=== PATIENT | female | born 1935 | race Caucasian/White ===

== ENCOUNTER → 2020-09-20 13:28 | Outpatient (BNVA) | payer MEDICARE, SELFPAY | PROVIDERS: PCP Internal Medicine; Referring Provider Internal Medicine; Visit Provider Hospitalist | DX: J44.9 Chronic obstructive pulmonary disease, unspecified (principal); Z79.899 Other long term (current) drug therapy | CPT/HCPCS: 99212 ==

== ENCOUNTER → 2021-03-17 12:47 | Outpatient (BNVA) | payer MEDICARE, SELFPAY | PROVIDERS: PCP Internal Medicine; Visit Provider Hospitalist | DX: R06.00 Dyspnea, unspecified (principal); J44.9 Chronic obstructive pulmonary disease, unspecified | CPT/HCPCS: 99212 ==

== ENCOUNTER → 2021-12-13 12:48 | Outpatient (BNVA) | payer MEDICARE, SELFPAY | PROVIDERS: PCP Internal Medicine; Visit Provider Hospitalist | DX: J44.9 Chronic obstructive pulmonary disease, unspecified (principal); R06.00 Dyspnea, unspecified; R53.83 Other fatigue; Z79.899 Other long term (current) drug therapy | CPT/HCPCS: 99212 ==

== ENCOUNTER 2022-08-15 12:50 | Outpatient (REF) | payer MEDICARE, SELFPAY ==
--- NOTE | ~2022-08-15 | XR_ITS ---
EXAMINATION: XR CHEST CLINICAL INFORMATION: Dyspnea COMPARISON: None TECHNIQUE: 2 views of the chest were obtained. FINDINGS: Heart is normal in size. Thoracic aorta is tortuous. No acute vascular congestion. There is some hyperexpansion of the lung parenchyma. Scarring and fibrotic changes seen in the right lung base. Apical fibrotic changes seen in the bilateral lung parenchyma. No focal opacities. There is kyphosis of the thoracic spine. XR/XR chest 2V IMPRESSION: No acute pulmonary process Hyperexpansion of the lung parenchyma with fibrotic changes as described above
== END 2022-08-15 12:51 | disposition home or self-care (01) ==
LOC: HO.XRAY 12:50
PROVIDERS: PCP Internal Medicine; Visit Provider Hospitalist
DX: J44.9 Chronic obstructive pulmonary disease, unspecified (principal); R06.00 Dyspnea, unspecified; R53.83 Other fatigue
CPT/HCPCS: 71046; 94618; 99212

== ENCOUNTER → 2023-02-20 13:13 | Outpatient (BNVA) | payer MEDICARE, SELFPAY | PROVIDERS: PCP Internal Medicine; Visit Provider Hospitalist | DX: J44.9 Chronic obstructive pulmonary disease, unspecified (principal); R53.83 Other fatigue; R06.00 Dyspnea, unspecified | CPT/HCPCS: 99212 ==

== ENCOUNTER 2023-08-22 11:11 | Outpatient (AMB) | payer MEDICARE, SELFPAY ==
[2023-08-22 11:34] VITALS: BP 124/60; PULSE 60; O2SAT 96; BMI 26.0
--- NOTE | 2023-08-22 11:34 | A.OFFVIS_ITS ---
Intake Vital Signs 08/22/23 11:34 Height 5 ft Weight 133 lb BMI 26.0 BP 124/60 Blood Pressure Location Lt brachial Position Sitting Pulse 60 Pulse Source Pulse Oximeter Pulse Oximetry (%) 96 Oxygen Delivery Method Room Air Intake Visit Reasons: copd [employer] Treater Required: No Allergies No Known Allergies Allergy (Verified 08/22/23 11:36) HPI HPI Comments History of Present Illness Details The patient is an 88-year-old woman with a known history of atrial fibrillation, hiatal hernia status post repair in addition to melanoma who has been developing progressive dyspnea on exertion. She states that at rest when while she is sitting she has not symptomatic. However, with minimal activity she becomes very symptomatic and has a hard time breathing. She did see her lacquer pin press operator and felt that it was not a cardiac process. Therefore she was referred to Pulmonary. On further questioning she does carry a diagnosis of asthma. She has been on good medications including increasing Advair for some time. She also has a rescue inhaler that she uses at times with some partial resolution of the symptoms. More recently also she found out that she is having issues with her neck. She did have a laminectomy back in 2009 and now having increasing neck pain. We did talk about the possibility of a phrenic nerve involvement that could result in increasing shortness of breath from and neuromuscular etiology. During the office visit we did take her for walking oximetry in the patient became very short of breath during the 6 minutes she was able to completed. Her pulse oximetry and heart rate were stable throughout the procedure but her shortness of breath Zachery score was elevated. She is scheduled for pulmonary function studies at [place] sometime in early April. Will follow up with does studies. 02/20/2023 the patient is here for pulmonary follow-up visit. The patient overall is feeling better with the nebulized therapy. She is using it twice a day. She still having a cough. Moderate production. She did get the Acapella valve we did go through the instructions in the office how to use it appropriately. Overall she is still doing relatively well from a respiratory status. She is still struggling with her breathing and her depression. She was recently started on Zoloft although she has not taking the medication as of yet. I did recommend she started. She can also try some melatonin for sleep. 08/22/2023 the patient is here for a pulmonary follow-up visit. The patient overall has been doing better. She is tolerating the Xopenex. She is also using the budesonide. Sometimes she only uses it once a day which is okay. But she knows to increase it to twice a day if her symptoms worsen. She also get the Acapella valve and she does use it at times. Her breathing overall has been stable. She is still having some difficulties with her fatigue during the daytime. Although she feels like she is sleeping well at nighttime. Sometimes she wakes up a little bit too early. She is not taking melatonin this time which is okay. The patient overall has been doing well therefore will continue with current therapy and will follow-up sometime in the summer. [facility] Medical History (Updated 08/22/23 @ 11:43 by Oniel Lehman MD) Fatigue Dyspnea Asthma-COPD overlap syndrome Family History (Updated 09/20/20 @ 22:33 by Oniel Lehman MD) Other Asthma Social History (Updated 02/20/23 @ 13:24 by Shaila Gaspar [facility]) Patient Tobacco Use Status: Never used Tobacco Review of Systems Const Reports daytime sleepiness, Denies difficulty sleeping, Reports fatigue and Denies night sweats ENT Denies change in voice, Denies lip swelling, Denies mouth pain, Reports nasal congestion, Reports nasal discharge and Denies tongue swelling Card Denies chest pain and Reports dyspnea on exertion Resp Denies change in phlegm color, Reports chest congestion, Reports cough and Reports dyspnea on exertion GI Denies abdominal pain Musc Denies no additional complaints and Reports abnormal gait Neuro Denies Neuro-related abnormal movements, Reports abnormal gait and Reports memory loss Psych Denies no additional complaints, Reports depression and Reports memory loss Endo Reports fatigue John/Lymph Denies easy bleeding and Denies lymphadenopathy Aller/Immun Denies lip swelling and Denies tongue swelling Physical Exam Vital Signs: Last Vital Signs Pulse 60 08/22/23 11:34 BP 124/60 08/22/23 11:34 Pulse Ox 96 08/22/23 11:34 Oxygen Delivery Method Room Air 08/22/23 11:34 BMI result Body Mass Index 26.0 Const General: alert Neck Neck: Yes normal visual inspection, Yes full ROM and Yes no lymphadenopathy Chest Chest palpation & inspection: normal inspection of the chest Resp Effort & Inspection: normal respiratory effort Auscultation: no rales, no rhonchi, no wheezes and diminished lung sounds (coarse) Cardio Rate: regular rate Rhythm: regular rhythm Heart sounds: S1 normal heart sound present and S2 normal heart sound present GI Palpation (GI): Soft to palpation and nontender Auscultation: normal bowel sounds Skin General skin exam: rashes and/or lesions noted Assessment & Plan Assessment & Plan (1) Dyspnea: Code(s): R06.00 - Dyspnea, unspecified Qualifiers: Dyspnea type: dyspnea on exertion Qualified Code(s): R06.00 - Dyspnea, unspecified (2) Asthma-COPD overlap syndrome: Code(s): J44.9 - Chronic obstructive pulmonary disease, unspecified (3) Fatigue: Code(s): R53.83 - Other fatigue Qualifiers: Fatigue type: chronic, unspecified Qualified Code(s): R53.82 - Chronic fatigue, unspecified Plan continue budesonide xopenex BID CPT with acapella valve ALFONSO as neded consider Melatonin for sleep F/U 8-10 months Coding Level of Care Code Est Pt Level 4 (36981) Diagnoses Dyspnea on exertion R06.00 Dyspnea type: dyspnea on exertion Asthma-COPD overlap syndrome J44.9 Chronic fatigue R53.82 Fatigue type: chronic, unspecified Time Spent (min) 16
== END 2023-08-22 11:52 | disposition home or self-care (01) ==
PROVIDERS: PCP Internal Medicine; Visit Provider Hospitalist
DX: R06.00 Dyspnea, unspecified (principal); J44.9 Chronic obstructive pulmonary disease, unspecified; R53.82 Chronic fatigue, unspecified
CPT/HCPCS: 99214

== ENCOUNTER → 2023-08-22 11:11 | Outpatient (BNVA) | payer MEDICARE, SELFPAY | PROVIDERS: Visit Provider Hospitalist | DX: J44.9 Chronic obstructive pulmonary disease, unspecified (principal); R06.00 Dyspnea, unspecified; R53.83 Other fatigue | CPT/HCPCS: 99212 ==

== ENCOUNTER 2024-05-15 13:10 | Outpatient (AMB) | payer MEDICARE, SELFPAY ==
--- NOTE | 2024-05-15 13:18 | A.OFFVIS_ITS ---
Vital Signs 05/15/24 13:26 Height 5 ft Weight 137 lb 12.623 oz BMI 26.9 BP 112/58 L Blood Pressure Location Rt brachial Position Sitting Pulse 58 Intake Visit Reasons: COPD Allergies No Known Allergies Allergy (Verified 05/15/24 13:27) HPI Comments Details: The patient is an 88-year-old woman with a known history of atrial fibrillation, hiatal hernia status post repair in addition to melanoma who has been developing progressive dyspnea on exertion. She states that at rest when while she is sitting she has not symptomatic. However, with minimal activity she becomes very symptomatic and has a hard time breathing. She did see her rails developer and felt that it was not a cardiac process. Therefore she was referred to Pulmonary. On further questioning she does carry a diagnosis of asthma. She has been on good medications including increasing Advair for some time. She also has a rescue inhaler that she uses at times with some partial resolution of the symptoms. More recently also she found out that she is having issues with her neck. She did have a laminectomy back in 2009 and now having increasing neck pain. We did talk about the possibility of a phrenic nerve involvement that could result in increasing shortness of breath from and neuromuscular etiology. During the office visit we did take her for walking oximetry in the patient became very short of breath during the 6 minutes she was able to completed. Her pulse oximetry and heart rate were stable throughout the procedure but her shortness of breath Zachery score was elevated. She is scheduled for pulmonary function studies at [place] sometime in early April. Will follow up with does studies. 02/20/2023 the patient is here for pulmonary follow-up visit. The patient overall is feeling better with the nebulized therapy. She is using it twice a day. She still having a cough. Moderate production. She did get the Acapella valve we did go through the instructions in the office how to use it appropriately. Overall she is still doing relatively well from a respiratory status. She is still struggling with her breathing and her depression. She was recently started on Zoloft although she has not taking the medication as of yet. I did recommend she started. She can also try some melatonin for sleep. 08/22/2023 the patient is here for a pulmonary follow-up visit. The patient overall has been doing better. She is tolerating the Xopenex. She is also using the budesonide. Sometimes she only uses it once a day which is okay. But she knows to increase it to twice a day if her symptoms worsen. She also get the Acapella valve and she does use it at times. Her breathing overall has been stable. She is still having some difficulties with her fatigue during the daytime. Although she feels like she is sleeping well at nighttime. Sometimes she wakes up a little bit too early. She is not taking melatonin this time which is okay. The patient overall has been doing well therefore will continue with current therapy and will follow-up sometime in the summer of 2023. 05/16/2024 the patient is here for a pulmonary follow-up visit. Overall she is doing well from a respiratory status. She is using budesonide with the Xopenex nebulized therapy with good effect. She also has an Acapella valve that she can use for chest congestion. From respiratory status medications have been working for her well. She has been having issues with absence episodes. She recently underwent a EEG awaiting the results. She does complaint of daytime drowsiness. [place] score is elevated 09/21. She does take naps during the daytime. The patient denies any headaches in the morning and she states that she sleeps well when she sleeps although she does sleep alone at this time. Hard to know if he is having apneic episodes or snoring. Based on the fact that she is developing some dementia and the fact that she has had these absence episodes along with the daytime drowsiness he will be reasonable to undergo a sleep study. Likely an in-lab sleep study would be best but home sleep study will be also reasonable to do specially if she does want to do it elsewhere. She is going to consider at this time she really does not want have any more studies. Therefore will continue with current respiratory therapy and the patient will return in a year's time. If she develops any worsening symptoms prior to that she will call for an earlier assessment. [facility] Medical History (Updated 08/22/23 @ 11:43 by Oniel Lehman MD) Fatigue Dyspnea Asthma-COPD overlap syndrome Family History (Updated 09/20/20 @ 22:33 by Oniel Lehman MD) Other Asthma Social History (Updated 02/20/23 @ 13:24 by Shaila Gaspar Gwendolyn) Patient Tobacco Use Status: Never used Tobacco Review of Systems Const Reports daytime sleepiness, Denies difficulty sleeping, Reports fatigue and Denies night sweats ENT Denies change in voice, Denies lip swelling, Denies mouth pain, Reports nasal congestion, Reports nasal discharge and Denies tongue swelling Card Denies chest pain and Reports dyspnea on exertion Resp Denies change in phlegm color, Reports chest congestion, Reports cough and Reports dyspnea on exertion GI Denies abdominal pain Musc Denies no additional complaints and Reports abnormal gait Neuro Denies Neuro-related abnormal movements, Reports abnormal gait and Reports memory loss Psych Denies no additional complaints, Reports depression and Reports memory loss Endo Reports fatigue John/Lymph Denies easy bleeding and Denies lymphadenopathy Aller/Immun Denies lip swelling and Denies tongue swelling Physical Exam Vital Signs: Last Vital Signs Pulse 58 05/15/24 13:26 BP 112/58 L 05/15/24 13:26 BMI result Body Mass Index 26.9 Const General: alert Neck Neck: Yes normal visual inspection, Yes full ROM and Yes no lymphadenopathy Chest Chest palpation & inspection: normal inspection of the chest Resp Effort & Inspection: normal respiratory effort Auscultation: no rales, no rhonchi, no wheezes and diminished lung sounds (coarse) Cardio Rate: regular rate Rhythm: regular rhythm Heart sounds: S1 normal heart sound present and S2 normal heart sound present GI Palpation (GI): Soft to palpation and nontender Auscultation: normal bowel sounds Skin General skin exam: rashes and/or lesions noted Assessment & Plan Assessment & Plan (1) Dyspnea: Code(s): R06.00 - Dyspnea, unspecified Category: Medical Qualifiers: Dyspnea type: dyspnea on exertion Qualified Code(s): R06.00 - Dyspnea, unspecified (2) Asthma-COPD overlap syndrome: Code(s): J44.9 - Chronic obstructive pulmonary disease, unspecified Category: Medical (3) Fatigue: Code(s): R53.83 - Other fatigue Category: Medical Qualifiers: Fatigue type: chronic, unspecified Qualified Code(s): R53.82 - Chronic fatigue, unspecified Plan continue budesonide xopenex BID CPT with acapella valve ALFONSO as neded consider Melatonin for sleep consider in lab sleep study F/U 10-12 months Medications: Refilled budesonide 0.5 mg (2 mL) PO BID 360 mL 3RF J44.9 - Chronic obstructive pulmonary disease, unspecified levalbuterol HCl 1.25 mg (3 mL) inhalation BID 540 mL 11RF 90 days J44.9 - Chronic obstructive pulmonary disease, unspecified Coding Level of Care Code Est Pt Level 4 (60717) Diagnoses Dyspnea on exertion R06.00 Dyspnea type: dyspnea on exertion Asthma-COPD overlap syndrome J44.9 Chronic fatigue R53.82 Fatigue type: chronic, unspecified Time Spent (min) 16
[2024-05-15 13:26] VITALS: BP 112/58; PULSE 58; BMI 26.9
== END 2024-05-15 13:40 | disposition home or self-care (01) ==
PROVIDERS: PCP Internal Medicine; Visit Provider Hospitalist
DX: R06.00 Dyspnea, unspecified (principal); J44.9 Chronic obstructive pulmonary disease, unspecified; R53.82 Chronic fatigue, unspecified
CPT/HCPCS: 99214

== ENCOUNTER → 2024-05-15 13:10 | Outpatient (BNVA) | payer MEDICARE, SELFPAY | PROVIDERS: PCP Internal Medicine; Visit Provider Hospitalist | DX: J44.9 Chronic obstructive pulmonary disease, unspecified (principal); R06.00 Dyspnea, unspecified; R53.82 Chronic fatigue, unspecified; Z79.899 Other long term (current) drug therapy | CPT/HCPCS: 99212 ==

== ENCOUNTER 2025-05-08 10:53 | Outpatient (AMB) | payer MEDICARE, SELFPAY ==
[2025-05-08 10:58] VITALS: BP 136/72; PULSE 90; O2SAT 97; BMI 26.7
--- NOTE | 2025-05-08 10:58 | MHC.OFFVIS ---
Vital Signs 05/08/25 10:58 Height 5 ft Weight 136 lb 10.986 oz BMI 26.7 BP 136/72 Blood Pressure Location Lt brachial Position Sitting Pulse 90 Pulse Source Pulse Oximeter Pulse Oximetry (%) 97 Oxygen Delivery Method Room Air Intake Visit Reasons: Prod cough/ lungs increased congestion Agency Owner Required: No Accompanied by: Daughter Allergies No Known Allergies Allergy (Verified 05/08/25 11:02) HPI Comments Details: The patient is an 89-year-old woman with a known history of atrial fibrillation, hiatal hernia status post repair in addition to melanoma who has been developing progressive dyspnea on exertion. She states that at rest when while she is sitting she has not symptomatic. However, with minimal activity she becomes very symptomatic and has a hard time breathing. She did see her first aid instructor and felt that it was not a cardiac process. Therefore she was referred to Pulmonary. On further questioning she does carry a diagnosis of asthma. She has been on good medications including increasing Advair for some time. She also has a rescue inhaler that she uses at times with some partial resolution of the symptoms. More recently also she found out that she is having issues with her neck. She did have a laminectomy back in 2009 and now having increasing neck pain. We did talk about the possibility of a phrenic nerve involvement that could result in increasing shortness of breath from and neuromuscular etiology. During the office visit we did take her for walking oximetry in the patient became very short of breath during the 6 minutes she was able to completed. Her pulse oximetry and heart rate were stable throughout the procedure but her shortness of breath Zachery score was elevated. She is scheduled for pulmonary function studies at [place] sometime in early April. Will follow up with does studies. 02/20/2023 the patient is here for pulmonary follow-up visit. The patient overall is feeling better with the nebulized therapy. She is using it twice a day. She still having a cough. Moderate production. She did get the Acapella valve we did go through the instructions in the office how to use it appropriately. Overall she is still doing relatively well from a respiratory status. She is still struggling with her breathing and her depression. She was recently started on Zoloft although she has not taking the medication as of yet. I did recommend she started. She can also try some melatonin for sleep. 08/22/2023 the patient is here for a pulmonary follow-up visit. The patient overall has been doing better. She is tolerating the Xopenex. She is also using the budesonide. Sometimes she only uses it once a day which is okay. But she knows to increase it to twice a day if her symptoms worsen. She also get the Acapella valve and she does use it at times. Her breathing overall has been stable. She is still having some difficulties with her fatigue during the daytime. Although she feels like she is sleeping well at nighttime. Sometimes she wakes up a little bit too early. She is not taking melatonin this time which is okay. The patient overall has been doing well therefore will continue with current therapy and will follow-up sometime in the summer of 2023. 05/16/2024 the patient is here for a pulmonary follow-up visit. Overall she is doing well from a respiratory status. She is using budesonide with the Xopenex nebulized therapy with good effect. She also has an Acapella valve that she can use for chest congestion. From respiratory status medications have been working for her well. She has been having issues with absence episodes. She recently underwent a EEG awaiting the results. She does complaint of daytime drowsiness. [place] score is elevated 09/21. She does take naps during the daytime. The patient denies any headaches in the morning and she states that she sleeps well when she sleeps although she does sleep alone at this time. Hard to know if he is having apneic episodes or snoring. Based on the fact that she is developing some dementia and the fact that she has had these absence episodes along with the daytime drowsiness he will be reasonable to undergo a sleep study. Likely an in-lab sleep study would be best but home sleep study will be also reasonable to do specially if she does want to do it elsewhere. She is going to consider at this time she really does not want have any more studies. Therefore will continue with current respiratory therapy and the patient will return in a year's time. If she develops any worsening symptoms prior to that she will call for an earlier assessment. 05/08/2025 the patient is here for sick visit. Apparently she has been sick now for about a week. She started developing sore throat in addition to cough chest tightness while she was staying at a retirement. She was evaluated urgent care for symptoms since she was getting worse and she had a positive strep study. Therefore she was placed on Augmentin. Although she is still complaint of cough chest tightness chest congestion. The family has been using the nebulizer twice a day. Still no significant improvement. No significant fevers though. No pleuritic discomfort. She has been able to cough up some phlegm. The family did listen to her lungs and felt to have some rhonchi and crackles therefore she was brought in to be evaluated. They did a treatment before coming into the office and currently her breathing sounds okay. No significant wheezing or rhonchi or crackles that I can appreciate. Though she does have a bronchospastic cough. Likely reactive airways from her ongoing respiratory illness. Will go ahead and start her on some prednisone and the patient can also start a course of doxycycline. In the meantime she is going to continue with the nebulized therapy. If the patient is no better by Sunday she will have an x-ray and they will call the office. [facility] Medical History (Updated 05/08/25 @ 11:24 by Oniel Lehman MD) Bronchitis Fatigue Dyspnea Asthma-COPD overlap syndrome Family History (Updated 09/20/20 @ 22:33 by Oniel Lehman MD) Other Asthma Social History Patient Tobacco Use Status: Never used Tobacco Review of Systems Const Reports daytime sleepiness, Denies difficulty sleeping, Reports fatigue and Denies night sweats ENT Denies change in voice, Denies lip swelling, Denies mouth pain, Reports nasal congestion, Reports nasal discharge and Denies tongue swelling Card Denies chest pain and Reports dyspnea on exertion Resp Denies change in phlegm color, Reports chest congestion, Reports cough, Reports dyspnea on exertion and Reports wheezing GI Denies abdominal pain Musc Denies no additional complaints and Reports abnormal gait Neuro Denies Neuro-related abnormal movements, Reports abnormal gait and Reports memory loss Psych Denies no additional complaints, Reports depression and Reports memory loss Endo Reports fatigue John/Lymph Denies easy bleeding and Denies lymphadenopathy Aller/Immun Denies lip swelling, Denies tongue swelling and Reports wheezing Physical Exam Vital Signs: Last Vital Signs Pulse 90 05/08/25 10:58 BP 136/72 05/08/25 10:58 Pulse Ox 97 05/08/25 10:58 Oxygen Delivery Method Room Air 05/08/25 10:58 BMI result Body Mass Index 26.7 Const General: alert Neck Neck: Yes normal visual inspection, Yes full ROM and Yes no lymphadenopathy Chest Chest palpation & inspection: normal inspection of the chest Resp Effort & Inspection: normal respiratory effort Auscultation: no rales, no rhonchi, no wheezes and diminished lung sounds (coarse) Cardio Rate: regular rate Rhythm: regular rhythm Heart sounds: S1 normal heart sound present and S2 normal heart sound present GI Palpation (GI): Soft to palpation and nontender Auscultation: normal bowel sounds Skin General skin exam: rashes and/or lesions noted Assessment & Plan Assessment & Plan (1) Bronchitis: Code(s): J40 - Bronchitis, not specified as acute or chronic Category: Medical (2) Dyspnea: Code(s): R06.00 - Dyspnea, unspecified Category: Medical Qualifiers: Dyspnea type: dyspnea on exertion Qualified Code(s): R06.00 - Dyspnea, unspecified (3) Asthma-COPD overlap syndrome: Code(s): J44.9 - Chronic obstructive pulmonary disease, unspecified Category: Medical (4) Fatigue: Code(s): R53.83 - Other fatigue Category: Medical Qualifiers: Fatigue type: chronic, unspecified Qualified Code(s): R53.82 - Chronic fatigue, unspecified Plan Start Prednisone taper Start Doxycycline CXR continue budesonide xopenex BID CPT with acapella valve ALFONSO as neded consider Melatonin for sleep consider in lab sleep study F/U 10-12 months Orders: Orders XR chest 2V 05/08/25 J40 - Bronchitis, not specified as acute or chronic Medications: New doxycycline monohydrate 100 mg PO BID 20 tabs 0RF 10 days prednisone PO daily; Take 4 tabs x 3 days, then 3 tabs x 3 days, then 2 tabs daily x 3 days, then 1 tab x 3 days to complete. 30 tabs 0RF 12 days Coding Level of Care Code Est Pt Level 4 (18240) Complex EM visit Add On G2211 Diagnoses Bronchitis J40 Dyspnea on exertion R06.00 Dyspnea type: dyspnea on exertion Asthma-COPD overlap syndrome J44.9 Chronic fatigue R53.82 Fatigue type: chronic, unspecified Time Spent (min) 16
--- OUTSIDE RECORDS SUMMARY | 2025-05-08 11:31 | XMS_ITS | Clinical Summary ---
Author Organization [facility] Address [address] [place] [address] Care Team Providers Care Web Site Developer Name Role Phone Puma Collins MD Primary Care Provider Unavailab le Social History Tobacco Use Types Packs/Day Years Used Date Smoking Tobacco: Never Smokeless Tobacco: Never Comments Unknown Sex and Gender Information Value Date Recorded Sex Assigned at Not on file Legal Sex Female 9:30 AM EST Gender Identity Not on file Sexual Orientation Not on file Obstetrics History Last Filed Vital Signs Vital Sign Reading Time Taken Comments Blood Pressure - - Pulse - - Temperature - - Respiratory Rate - - Oxygen Saturation - - Inhaled Oxygen Concentration - - Weight 61.2 kg (135 lb) 04/13/2023 1:43 PM EDT Height 152.4 cm (5') 04/13/2023 1:43 PM EDT Body Mass Index 26.37 04/13/2023 1:43 PM EDT Plan of Treatment Health Maintenance Due Date Last Done Comments Pneumococcal Vaccine: 50+ Years (1 of 1 - PCV) 1987 RSV Immunization Adult Patients (1 - 1-dose 75+ series) 2012 Zoster Vaccines (2 of 3) 10/27/2014 09/01/2014 Depression Screening 10/01/2022 Falls Risk Assessment 10/01/2022 Osteoporosis Screening (Bone Density Screening) 10/01/2022 Social Influencers of Health Screening 10/01/2022 COVID-19 Vaccine ( season) 2024 02/06/2022, 08/29/2021, 12/21/2020, Additional history exists Influenza Vaccine (#1) 2025 , 07/25/2021, 07/29/2020, Additional history exists DTaP,Tdap,and Td Vaccines (2 - Td or Tdap) 09/03/2028 09/03/2018 HIB Vaccines Aged Out No longer eligi ble based on patient's age to complete this topic HPV Vaccines Aged Out No longer eligi ble based on patient's age to complete this topic Hepatitis A Vaccines Aged Out No long er eligible based on patient's age to complete this topic Hepatitis B Vaccines Aged Out No long er eligible based on patient's age to complete this topic IPV Vaccines Aged Out No longer eligi ble based on patient's age to complete this topic MMR Vaccines Aged Out No longer eligi ble based on patient's age to complete this topic Meningococcal ACWY Vaccine Aged Out N o longer eligible based on patient's age to complete this topic Meningococcal B Vaccine Aged Out No l onger eligible based on patient's age to complete this topic RSV Immunization Patients Under 20 months Aged Out No longer eligible based on patient's age to complete this topic Varicella Vaccines Aged Out No longer eligible based on patient's age to complete this topic Advance Directives Documents on File Type Date Recorded 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 Health Care Decision (hx) 04/01/2024 HE ALTH CARE PROXY Health Care Decision (hx) 03/11/2018 AD ORTEGA DIRECTIVE Health Care Decision (hx) 03/11/2018 AD ORTEGA DIRECTIVE Health Care Decision (hx) 03/11/2018 AD ORTEGA DIRECTIVE Health Care Decision (hx) 03/11/2018 AD ORTEGA DIRECTIVE Health Care Decision (hx) 03/11/2018 AD ORTEGA DIRECTIVE Health Care Decision (hx) 03/11/2018 AD ORTEGA DIRECTIVE Health Care Decision (hx) 03/11/2018 AD ORTEGA DIRECTIVE Health Care Decision (hx) 03/11/2018 AD ORTEGA DIRECTIVE Health Care Decision (hx) 04/06/2014 AD ORTEGA DIRECTIVE Health Care Decision (hx) 04/06/2014 AD ORTEGA DIRECTIVE Health Care Decision (hx) 04/06/2014 AD ORTEGA DIRECTIVE Health Care Decision (hx) 04/06/2014 AD ORTEGA DIRECTIVE Health Care Decision (hx) 04/06/2014 AD ORTEGA DIRECTIVE Health Care Decision (hx) 04/06/2014 AD ORTEGA DIRECTIVE Health Care Decision (hx) 04/06/2014 AD ORTEGA DIRECTIVE Health Care Decision (hx) 04/06/2014 AD ORTEGA DIRECTIVE Health Care Decision (hx) 12/26/2010 AD ORTEGA DIRECTIVE Health Care Decision (hx) 12/26/2010 AD ORTEGA DIRECTIVE Health Care Decision (hx) 12/26/2010 AD ORTEGA DIRECTIVE Health Care Decision (hx) 12/26/2010 AD ORTEGA DIRECTIVE Health Care Decision (hx) 12/26/2010 AD ORTEGA DIRECTIVE Health Care Decision (hx) 12/26/2010 AD ORTEGA DIRECTIVE Health Care Decision (hx) 12/26/2010 AD ORTEGA DIRECTIVE Health Care Decision (hx) 12/26/2010 AD ORTEGA DIRECTIVE Care Teams Web Site Developer Relationship Specialty Start Date End Date Puma Collins MD PCP - General Internal Medicine 02/11/18
--- OUTSIDE RECORDS SUMMARY | 2025-05-08 11:31 | XMS_ITS | Clinical Summary ---
Author Organization [facility] Address [address] [place] [address] Care Team Providers Care Structures Technician Name Role Phone Puma Collins MD Primary Care Provider [phone] Allergies No known active allergies Medications Medication Sig Dispensed Refills Start Date End Date Status amLODIPine (NORVASC) tablet 5 mg 0 03/02/2018 Active ADVAIR HFA 115-21 MCG/ACT inhaler INHALE 2 PUFFS PO BID. RINSE MOUTH AFTER EACH USE 2 02/05/2018 Active losartan (COZAAR) tablet 50 mg TK 1 T PO D 0 12/17/2017 Active simvastatin (ZOCOR) tablet 20 mg TK 1 T PO D 1 01/01/2018 Active INCRUSE ELLIPTA 62.5 MCG/INH AEPB INHALE 1 PUFF PO D UTD 1 02/06/2018 Active valsartan (DIOVAN) tablet 40 mg 0 08/23/2021 Active Dilt-XR 180 MG 24 hr capsule 0 08/21/2021 Active Cyanocobalamin (B-12) 1000 MCG CAPS 0 10/09/2021 Active arformoterol (BROVANA) 15 MCG/2ML NEBU 0 09/28/2021 Active Eliquis 5 MG TABS tablet 0 09/06/2021 Active dilTIAZem (CARDIZEM CD) 180 MG 24 hr capsule Take 180 mg by mouth daily. 0 Active VITAMIN D PO Take by mouth. 0 Active Calcium Carbonate (CALCIUM 500 PO) Take by mouth. 0 Acti ve Family History Medical History Relation Name Comments Arthritis Father Heart disease Mother Relation Name Status Comments Father Mother Social History Tobacco Use Types Packs/Day Years Used Date Smoking Tobacco: Never Smokeless Tobacco: Never Alcohol Use Standard Drinks/Week Comments Not Currently 0 (1 standard drink = 0.6 oz pur e alcohol) Sex and Gender Information Value Date Recorded Sex Assigned at Not on file Gender Identity Not on file Sexual Orientation Not on file Job Start Date Occupation Industry Not on file Not on file Not on file Last Filed Vital Signs Vital Sign Reading Time Taken Comments Blood Pressure - - Pulse - - Temperature - - Respiratory Rate - - Oxygen Saturation - - Inhaled Oxygen Concentration - - Weight 63.5 kg (140 lb) 11/09/2021 1:09 PM EST Height 165.1 cm (5' 5 ) 11/09/2021 1:09 PM EST Body Mass Index 23.3 11/09/2021 1:09 PM EST Plan of Treatment Health Maintenance Due Date Last Done Comments COVID-19 Vaccine (#1) 02/01/1936 Depression Screening 1949 Preventative Health Evaluation 1955 DTap / Tdap / Td (1 - Tdap) 1956 Shingrix-Zoster Vaccine (1 of 2) 1987 Fall Risk Assessment 2002 Osteoporosis Screening (DEXA Scan) 2002 Pneumococcal Vaccine (1 of 1 - PCV) 2002 RSV Adult > 60+ Yrs or Pregn ant (1 - 1-dose 75+ series) 2012 Influenza Vaccine (#1) 2025 Hepatitis B Vaccines Aged Out No long er eligible based on patient's age to complete this topic RSV Ped < 20 months Aged Out No longe r eligible based on patient's age to complete this topic Care Teams Structures Technician Relationship Specialty Start Date End Date Puma Collins MD [address] [place] [phone] PCP - General Internal Medicine 02/11/18
== END 2025-05-08 11:31 | disposition home or self-care (01) ==
LOC: HO.HPS 10:54
PROVIDERS: PCP Internal Medicine; Visit Provider Hospitalist
DX: J40 Bronchitis, not specified as acute or chronic (principal); R06.00 Dyspnea, unspecified; J44.9 Chronic obstructive pulmonary disease, unspecified; R53.82 Chronic fatigue, unspecified
CPT/HCPCS: 99214; G2211

== ENCOUNTER → 2025-05-08 10:53 | Outpatient (BNVA) | payer MEDICARE, SELFPAY | PROVIDERS: PCP Internal Medicine; Visit Provider Hospitalist | DX: J40 Bronchitis, not specified as acute or chronic (principal); J44.89 Other specified chronic obstructive pulmonary disease; R06.00 Dyspnea, unspecified; R53.82 Chronic fatigue, unspecified | CPT/HCPCS: 99212 ==